=== PATIENT | male | born 1960 | race African-American/Black ===

== ENCOUNTER 2018-09-06 13:13 | Inpatient (IN) ==
[2018-09-06] MEDS ORDERED: SODIUM CHLORIDE 0.9% 1,000 ML IV PRN (14:23)
[2018-09-06 14:52] LABS: Eosinophils % 0.6 % (0.00-10.9); Immature Granulocytes % 0.2 %; Immature Granulocytes Absolute 0.01 #; Lymphocytes # 0.6 10*3/uL (1.4-4.0); Lymphocytes % 12.8 % (21.2-54.2); Mean Corpuscular HGB Conc 31.7 GM/DL (32-36); Mean Corpuscular Volume 93.9 FL (87-102); Monocytes % 5.4 % (1.7-12.7); Platelet Count 133 T/CUMM (130-400); Red Blood Count 1.31 MC/CUMM (3.8-5.5); Red Cell Distribution Width 13.5 % (9.3-17.3)
[2018-09-06] MEDS ORDERED: ACETAMINOPHEN 325 MG TABLET PO PRN (15:06)
[2018-09-06] MEDS ORDERED: GLUCAGON 1 MG VIAL IM PRN (15:06)
[2018-09-06] MEDS ORDERED: DEXTROSE 50% 25 GM/50 ML VIAL IV PRN (15:06)
[2018-09-06] MEDS ORDERED: DOCUSATE SODIUM 100 MG CAPSULE PO PRN (15:06)
[2018-09-06 15:15] LABS: Hematocrit 12.3 VOL% (42.0-52.0); Hemoglobin 3.9 GM/DL (14.0-18.0)
[2018-09-06 15:51] LABS: % Iron Saturation 32.4 % (18-50)
[2018-09-06 16:00] LABS: Folate 11.2 NG/ML (5.4-24.0)
[2018-09-06] MEDS ORDERED: MAGNESIUM SULF RIDER 2 GM in PREMIX 1 EACH IV ONE (16:27)
[2018-09-06 18:25] LABS: Calcium 7.6 MG/DL (8.5-10.1); Osmolality,Calculated 301.1 MOS/KG (273-304)
[2018-09-06] MEDS: INSULIN LISPRO 100 UNIT/ML SUBCUT SCH ×2 (18:25→20:53)
[2018-09-06] MEDS: SODIUM BICARBONATE 650 MG TABLET PO SCH (20:53)
[2018-09-06] MEDS: ATORVASTATIN 40 MG TABLET PO SCH (20:53)
[2018-09-07 07:27] LABS: Basophils % 0.4 % (0.0-0.8); Eosinophils # 0.1 10*3/uL (0.0-0.87); Eosinophils % 1.8 % (0.00-10.9); Hematocrit 24.6 VOL% (42.0-52.0); Immature Granulocytes % 0.4 %; Immature Granulocytes Absolute 0.03 #; Lymphocytes # 1.1 10*3/uL (1.4-4.0); Lymphocytes % 16.2 % (21.2-54.2); Mean Corpuscular HGB Conc 32.9 GM/DL (32-36); Mean Corpuscular Volume 91.4 FL (87-102); Mean Platelet Volume 9.4 FL (9.6-12.0); Monocytes % 6.3 % (1.7-12.7); Neutrophils % 74.9 % (38.7-73.9); Platelet Count 124 T/CUMM (130-400); Red Cell Distribution Width 13.4 % (9.3-17.3)
[2018-09-07 07:30] LABS: Red Blood Count 2.69 MC/CUMM (3.8-5.5); White Blood Count 6.8 T/CUMM (4-12)
[2018-09-07 07:31] LABS: Hemoglobin 8.1 GM/DL (14.0-18.0)
[2018-09-07 07:59] LABS: Alanine Aminotransferase 23 U/L (16-61); Albumin 2.8 G/DL (3.4-5.0); Alkaline Phosphatase 53 U/L (45-117); Aspartate Amino Transferase 16 U/L (0-37); Bilirubin,Total < 0.39 MG/DL (0.2-1.0); Blood Urea Nitrogen 59 MG/DL (7-18); Calcium 7.9 MG/DL (8.5-10.1); Glucose 87 MG/DL (74-106); Osmolality,Calculated 294.4 MOS/KG (273-304); Total Protein 6.1 G/DL (6.4-8.3)
[2018-09-07] MEDS: SODIUM BICARBONATE 650 MG TABLET PO SCH ×3 (08:44→21:05)
[2018-09-07] MEDS: PANTOPRAZOLE 40 MG TABLET PO SCH (08:44)
[2018-09-07] MEDS: INSULIN LISPRO 100 UNIT/ML SUBCUT SCH ×4 (08:44→21:06)
[2018-09-07] MEDS ORDERED: DIAZEPAM 5 MG TABLET PO ONE (10:46)
[2018-09-07 12:31] LABS: Hematocrit 26.2 VOL% (42.0-52.0); Hemoglobin 8.8 GM/DL (14.0-18.0)
[2018-09-07 15:40] LABS: Hematocrit 25.9 VOL% (42.0-52.0); Hemoglobin 8.7 GM/DL (14.0-18.0)
[2018-09-07 20:22] LABS: Hematocrit 26.3 VOL% (42.0-52.0); Hemoglobin 8.6 GM/DL (14.0-18.0)
[2018-09-07] MEDS: ATORVASTATIN 40 MG TABLET PO SCH (21:05)
[2018-09-07 23:31] LABS: Hematocrit 24.6 VOL% (42.0-52.0)
[2018-09-08 04:45] LABS: Basophils % 0.5 % (0.0-0.8); Eosinophils # 0.2 10*3/uL (0.0-0.87); Eosinophils % 2.7 % (0.00-10.9); Hematocrit 24.2 VOL% (42.0-52.0); Hemoglobin 8.2 GM/DL (14.0-18.0); Immature Granulocytes % 0.3 %; Immature Granulocytes Absolute 0.02 #; Lymphocytes # 1.3 10*3/uL (1.4-4.0); Lymphocytes % 17.3 % (21.2-54.2); Mean Corpuscular HGB Conc 33.9 GM/DL (32-36); Mean Corpuscular Volume 89.6 FL (87-102); Mean Platelet Volume 9.4 FL (9.6-12.0); Monocytes % 6.4 % (1.7-12.7); Neutrophils % 72.8 % (38.7-73.9); Platelet Count 132 T/CUMM (130-400); Red Cell Distribution Width 13.7 % (9.3-17.3); White Blood Count 7.4 T/CUMM (4-12)
[2018-09-08 05:17] LABS: Alanine Aminotransferase 21 U/L (16-61); Albumin 2.8 G/DL (3.4-5.0); Alkaline Phosphatase 54 U/L (45-117); Aspartate Amino Transferase 14 U/L (0-37); Bilirubin,Total < 0.39 MG/DL (0.2-1.0); Blood Urea Nitrogen 59 MG/DL (7-18); Calcium 7.7 MG/DL (8.5-10.1); Glucose 116 MG/DL (74-106); Osmolality,Calculated 298.3 MOS/KG (273-304)
[2018-09-08] MEDS: INSULIN LISPRO 100 UNIT/ML SUBCUT SCH ×4 (07:59→21:34)
[2018-09-08] MEDS: PANTOPRAZOLE 40 MG TABLET PO SCH (08:23)
[2018-09-08] MEDS: SODIUM BICARBONATE 650 MG TABLET PO SCH ×3 (08:23→21:30)
[2018-09-08] MEDS: amLODIPine 5 MG TABLET PO SCH (11:22)
[2018-09-08] MEDS: SODIUM CHLORIDE 0.9% 1,000 ML IV SCH (11:22)
[2018-09-08] MEDS: ATORVASTATIN 40 MG TABLET PO SCH (21:30)
[2018-09-09] MEDS: SODIUM CHLORIDE 0.9% 1,000 ML IV SCH ×2 (01:05→13:58)
[2018-09-09 05:39] LABS: Basophils % 0.5 % (0.0-0.8); Eosinophils # 0.2 10*3/uL (0.0-0.87); Eosinophils % 2.4 % (0.00-10.9); Hemoglobin 8.4 GM/DL (14.0-18.0); Immature Granulocytes % 0.3 %; Immature Granulocytes Absolute 0.02 #; Lymphocytes # 1.2 10*3/uL (1.4-4.0); Lymphocytes % 15.3 % (21.2-54.2); Mean Corpuscular HGB Conc 33.6 GM/DL (32-36); Mean Corpuscular Volume 89.9 FL (87-102); Mean Platelet Volume 9.7 FL (9.6-12.0); Monocytes % 7.1 % (1.7-12.7); Neutrophils % 74.4 % (38.7-73.9); Platelet Count 133 T/CUMM (130-400); Red Blood Count 2.78 MC/CUMM (3.8-5.5); Red Cell Distribution Width 13.4 % (9.3-17.3); White Blood Count 7.6 T/CUMM (4-12)
[2018-09-09 05:53] LABS: Albumin 2.7 G/DL (3.4-5.0); Bilirubin,Total 0.7 MG/DL (0.2-1.0); Calcium 8.1 MG/DL (8.5-10.1); Osmolality,Calculated 294.3 MOS/KG (273-304); Total Protein 5.6 G/DL (6.4-8.3)
[2018-09-09] MEDS: INSULIN LISPRO 100 UNIT/ML SUBCUT SCH ×4 (07:51→21:12)
[2018-09-09] MEDS: PANTOPRAZOLE 40 MG TABLET PO SCH (09:18)
[2018-09-09] MEDS: SODIUM BICARBONATE 650 MG TABLET PO SCH ×3 (09:18→21:12)
[2018-09-09] MEDS: amLODIPine 5 MG TABLET PO SCH (09:18)
[2018-09-09] MEDS: ATORVASTATIN 40 MG TABLET PO SCH (21:12)
[2018-09-10] MEDS: INSULIN LISPRO 100 UNIT/ML SUBCUT SCH ×4 (07:41→21:52)
[2018-09-10 08:05] LABS: Basophils % 0.5 % (0.0-0.8); Eosinophils # 0.2 10*3/uL (0.0-0.87); Eosinophils % 2.8 % (0.00-10.9); Hematocrit 27.6 VOL% (42.0-52.0); Immature Granulocytes % 0.3 %; Immature Granulocytes Absolute 0.02 #; Lymphocytes % 15.9 % (21.2-54.2); Mean Corpuscular HGB Conc 32.6 GM/DL (32-36); Mean Corpuscular Volume 92.3 FL (87-102); Mean Platelet Volume 9.4 FL (9.6-12.0); Monocytes % 6.7 % (1.7-12.7); Neutrophils % 73.8 % (38.7-73.9); Platelet Count 132 T/CUMM (130-400); Red Blood Count 2.99 MC/CUMM (3.8-5.5); Red Cell Distribution Width 13.5 % (9.3-17.3); White Blood Count 6.1 T/CUMM (4-12)
[2018-09-10 08:22] LABS: Alanine Aminotransferase 19 U/L (16-61); Albumin 2.9 G/DL (3.4-5.0); Alkaline Phosphatase 59 U/L (45-117); Aspartate Amino Transferase 16 U/L (0-37); Bilirubin,Total < 0.39 MG/DL (0.2-1.0); Blood Urea Nitrogen 43 MG/DL (7-18); Calcium 7.8 MG/DL (8.5-10.1); Glucose 113 MG/DL (74-106); Osmolality,Calculated 290.4 MOS/KG (273-304); Total Protein 6.3 G/DL (6.4-8.3)
[2018-09-10] MEDS: PANTOPRAZOLE 40 MG TABLET PO SCH (08:36)
[2018-09-10] MEDS: amLODIPine 5 MG TABLET PO SCH (08:36)
[2018-09-10] MEDS: SODIUM BICARBONATE 650 MG TABLET PO SCH ×3 (08:36→21:50)
[2018-09-10] MEDS: ATORVASTATIN 40 MG TABLET PO SCH (21:50)
[2018-09-11] MEDS: PANTOPRAZOLE 40 MG TABLET PO SCH (08:07)
[2018-09-11] MEDS: SODIUM BICARBONATE 650 MG TABLET PO SCH ×3 (08:08→21:04)
[2018-09-11] MEDS: amLODIPine 10 MG TABLET PO SCH (08:11)
[2018-09-11] MEDS: INSULIN LISPRO 100 UNIT/ML SUBCUT SCH ×4 (08:13→21:06)
[2018-09-11] MEDS ORDERED: ceFAZolin 2,000 MG in PREMIX 1 EACH IV ONE (08:30)
[2018-09-11 13:03] LABS: Basophils % 0.6 % (0.0-0.8); Eosinophils # 0.2 10*3/uL (0.0-0.87); Eosinophils % 2.4 % (0.00-10.9); Hematocrit 28.5 VOL% (42.0-52.0); Hemoglobin 9.5 GM/DL (14.0-18.0); Immature Granulocytes % 0.3 %; Immature Granulocytes Absolute 0.02 #; Lymphocytes % 14.6 % (21.2-54.2); Mean Corpuscular HGB Conc 33.3 GM/DL (32-36); Mean Corpuscular Volume 90.5 FL (87-102); Mean Platelet Volume 9.8 FL (9.6-12.0); Monocytes % 6.8 % (1.7-12.7); Neutrophils % 75.3 % (38.7-73.9); Platelet Count 139 T/CUMM (130-400); Red Blood Count 3.15 MC/CUMM (3.8-5.5); Red Cell Distribution Width 13.6 % (9.3-17.3); White Blood Count 6.6 T/CUMM (4-12)
[2018-09-11 13:28] LABS: Albumin 3.1 G/DL (3.4-5.0); Calcium 8.5 MG/DL (8.5-10.1)
[2018-09-11] MEDS ORDERED: LIDOCAINE 1%/EPI INJ 20 ML VIAL ONE (13:47)
[2018-09-11] MEDS ORDERED: TISSUE ADHESIVE 1 EACH APPLICATOR TOP ONE (13:47)
[2018-09-11] MEDS ORDERED: SEVOFLURANE 1 UNIT/15 MINUTE INH ONE (15:58)
[2018-09-11] MEDS ORDERED: ePHEDrine 50 MG/ML AMP ONE (15:58)
[2018-09-11] MEDS ORDERED: fentaNYL 100 MCG/2 ML VIAL ONE (15:58)
[2018-09-11] MEDS ORDERED: MIDAZOLAM 2 MG/2 ML VIAL ONE (15:58)
[2018-09-11] MEDS ORDERED: DESFLURANE 1 UNIT/15 MINUTE INH ONE (15:58)
[2018-09-11] MEDS ORDERED: PROPOFOL 200 MG/20 ML VIAL IV ONE (15:58)
[2018-09-11] MEDS ORDERED: PHENYLEPHRINE 1 MG/10 ML SYRINGE IV ONE (15:59)
[2018-09-11] MEDS ORDERED: GLYCOPYRROLATE 0.4 MG/2 ML VIAL ONE (15:59)
[2018-09-11] MEDS ORDERED: NEOSTIGMINE 10 MG/10 ML VIAL ONE (15:59)
[2018-09-11] MEDS ORDERED: ROCURONIUM 100 MG/10 ML VIAL IV ONE (15:59)
[2018-09-11] MEDS ORDERED: LACTATED RINGERS 1,000 ML IV ONE (15:59)
[2018-09-11] MEDS ORDERED: MORPHINE 4 MG/1 ML VIAL IV PRN (16:44)
[2018-09-11] MEDS: ATORVASTATIN 40 MG TABLET PO SCH (21:04)
[2018-09-11] MEDS: ONDANSETRON 4 MG/2 ML VIAL IV PRN (21:18)
[2018-09-12 04:55] LABS: Basophils % 0.2 % (0.0-0.8); Eosinophils % 0.3 % (0.00-10.9); Hematocrit 27.3 VOL% (42.0-52.0); Immature Granulocytes % 0.3 %; Immature Granulocytes Absolute 0.03 #; Lymphocytes # 0.7 10*3/uL (1.4-4.0); Lymphocytes % 8.2 % (21.2-54.2); Mean Corpuscular Volume 91.3 FL (87-102); Mean Platelet Volume 10.3 FL (9.6-12.0); Monocytes % 5.7 % (1.7-12.7); Neutrophils % 85.3 % (38.7-73.9); Platelet Count 116 T/CUMM (130-400); Red Blood Count 2.99 MC/CUMM (3.8-5.5); Red Cell Distribution Width 13.6 % (9.3-17.3); White Blood Count 8.6 T/CUMM (4-12)
[2018-09-12 05:13] LABS: Albumin 2.8 G/DL (3.4-5.0); Calcium 8.1 MG/DL (8.5-10.1); Osmolality,Calculated 289.7 MOS/KG (273-304)
[2018-09-12] MEDS: INSULIN LISPRO 100 UNIT/ML SUBCUT SCH ×4 (08:51→22:57)
[2018-09-12] MEDS: SODIUM BICARBONATE 650 MG TABLET PO SCH ×3 (08:53→20:12)
[2018-09-12] MEDS: amLODIPine 10 MG TABLET PO SCH (08:53)
[2018-09-12] MEDS: PANTOPRAZOLE 40 MG TABLET PO SCH (08:54)
[2018-09-12] MEDS: ONDANSETRON 4 MG/2 ML VIAL IV PRN (16:55)
[2018-09-12] MEDS: ATORVASTATIN 40 MG TABLET PO SCH (20:13)
[2018-09-13 05:41] LABS: Basophils % 0.4 % (0.0-0.8); Eosinophils # 0.1 10*3/uL (0.0-0.87); Eosinophils % 0.8 % (0.00-10.9); Hematocrit 32.9 VOL% (42.0-52.0); Hemoglobin 10.7 GM/DL (14.0-18.0); Immature Granulocytes % 0.8 %; Immature Granulocytes Absolute 0.08 #; Lymphocytes # 1.3 10*3/uL (1.4-4.0); Lymphocytes % 12.5 % (21.2-54.2); Mean Corpuscular HGB Conc 32.5 GM/DL (32-36); Mean Corpuscular Volume 92.2 FL (87-102); Mean Platelet Volume 9.8 FL (9.6-12.0); Monocytes % 5.3 % (1.7-12.7); Neutrophils % 80.2 % (38.7-73.9); Platelet Count 142 T/CUMM (130-400); Red Blood Count 3.57 MC/CUMM (3.8-5.5); Red Cell Distribution Width 13.5 % (9.3-17.3); White Blood Count 10.7 T/CUMM (4-12)
[2018-09-13 05:48] LABS: Albumin 3.6 G/DL (3.4-5.0); Calcium 8.5 MG/DL (8.5-10.1); Osmolality,Calculated 281.1 MOS/KG (273-304)
[2018-09-13] MEDS: INSULIN LISPRO 100 UNIT/ML SUBCUT SCH ×4 (09:31→21:43)
[2018-09-13] MEDS ORDERED: MIDAZOLAM 2 MG/2 ML VIAL IV ONE (11:27)
[2018-09-13] MEDS ORDERED: fentaNYL 100 MCG/2 ML VIAL IV ONE (11:27)
[2018-09-13] MEDS ORDERED: DIAZEPAM 5 MG TABLET PO ONE (13:00)
[2018-09-13] MEDS ORDERED: MIDAZOLAM 2 MG/2 ML VIAL ONE (14:11)
[2018-09-13] MEDS ORDERED: fentaNYL 100 MCG/2 ML VIAL ONE (14:11)
[2018-09-13] MEDS: PANTOPRAZOLE 40 MG TABLET PO SCH (16:37)
[2018-09-13] MEDS: SODIUM BICARBONATE 650 MG TABLET PO SCH ×3 (16:37→21:41)
[2018-09-13] MEDS: amLODIPine 10 MG TABLET PO SCH (16:37)
[2018-09-13] MEDS: ATORVASTATIN 40 MG TABLET PO SCH (21:42)
[2018-09-14 05:33] LABS: Basophils % 0.2 % (0.0-0.8); Eosinophils # 0.1 10*3/uL (0.0-0.87); Eosinophils % 1.2 % (0.00-10.9); Hematocrit 27.2 VOL% (42.0-52.0); Hemoglobin 8.8 GM/DL (14.0-18.0); Immature Granulocytes % 0.4 %; Immature Granulocytes Absolute 0.03 #; Lymphocytes # 1.2 10*3/uL (1.4-4.0); Lymphocytes % 14.1 % (21.2-54.2); Mean Corpuscular HGB Conc 32.4 GM/DL (32-36); Mean Corpuscular Volume 91.6 FL (87-102); Mean Platelet Volume 9.9 FL (9.6-12.0); Monocytes % 5.8 % (1.7-12.7); Neutrophils % 78.3 % (38.7-73.9); Platelet Count 107 T/CUMM (130-400); Red Blood Count 2.97 MC/CUMM (3.8-5.5); Red Cell Distribution Width 13.5 % (9.3-17.3); White Blood Count 8.2 T/CUMM (4-12)
[2018-09-14 05:49] LABS: Albumin 2.7 G/DL (3.4-5.0); Calcium 8.2 MG/DL (8.5-10.1)
[2018-09-14] MEDS ORDERED: MAGNESIUM HYDROXIDE SUSP 30 ML UDCUP PO PRN (07:44)
[2018-09-14] MEDS: TAMSULOSIN 0.4 MG CAPSULE PO SCH (08:37)
[2018-09-14] MEDS: SODIUM BICARBONATE 650 MG TABLET PO SCH ×3 (08:37→21:26)
[2018-09-14] MEDS: PANTOPRAZOLE 40 MG TABLET PO SCH (08:37)
[2018-09-14] MEDS: amLODIPine 10 MG TABLET PO SCH (08:37)
[2018-09-14] MEDS: INSULIN LISPRO 100 UNIT/ML SUBCUT SCH ×4 (10:21→21:34)
[2018-09-14] MEDS ORDERED: SODIUM POLYSTYRENE SULFATE 15 GM/60 ML BOTTLE PO ONE (13:30)
[2018-09-14] MEDS: ATORVASTATIN 40 MG TABLET PO SCH (21:26)
[2018-09-15 05:57] LABS: Albumin 2.7 G/DL (3.4-5.0); Calcium 8.2 MG/DL (8.5-10.1); Osmolality,Calculated 281.2 MOS/KG (273-304)
[2018-09-15] MEDS: INSULIN LISPRO 100 UNIT/ML SUBCUT SCH ×2 (07:29→12:08)
[2018-09-15] MEDS: SODIUM BICARBONATE 650 MG TABLET PO SCH (09:38)
[2018-09-15] MEDS: PANTOPRAZOLE 40 MG TABLET PO SCH (09:38)
[2018-09-15] MEDS: TAMSULOSIN 0.4 MG CAPSULE PO SCH (09:38)
[2018-09-15] MEDS: amLODIPine 10 MG TABLET PO SCH (09:38)
[2018-09-15 12:13] VITALS: BP 135/87
== END 2018-09-15 13:50 | disposition home or self-care, planned readmission (81) | DRG 988 ==
LOC: N.ED 13:13 → SUATTDRO 15:07 → N.2E 15:22 → N.EDINP 17:25 → N.2E 17:30
PROVIDERS: ADMIT Emergency Medicine; ATTEND Internal Medicine

== ENCOUNTER 2018-10-10 11:50 | Observation (INO) ==
[2018-10-10] MEDS ORDERED: ONDANSETRON 4 MG/2 ML VIAL IV PRN (17:29)
[2018-10-10] MEDS ORDERED: GLUCAGON 1 MG VIAL IM PRN ×2 (17:29)
[2018-10-10] MEDS ORDERED: SODIUM CHLORIDE 0.9% 1,000 ML IV PRN (17:29)
[2018-10-10] MEDS ORDERED: DEXTROSE 50% 25 GM/50 ML VIAL IV PRN ×2 (17:29)
[2018-10-10] MEDS ORDERED: ACETAMINOPHEN 325 MG TABLET PO PRN (17:29)
[2018-10-10 18:29] LABS: Basophils % 0.3 % (0.0-0.8); Eosinophils # 0.1 10*3/uL (0.0-0.87); Eosinophils % 1.6 % (0.00-10.9); Immature Granulocytes % 0.4 %; Immature Granulocytes Absolute 0.03 #; Lymphocytes # 1.4 10*3/uL (1.4-4.0); Lymphocytes % 18.4 % (21.2-54.2); Mean Corpuscular HGB Conc 30.5 GM/DL (32-36); Mean Corpuscular Volume 94.6 FL (87-102); Mean Platelet Volume 9.6 FL (9.6-12.0); Monocytes % 5.1 % (1.7-12.7); Neutrophils % 74.2 % (38.7-73.9); Platelet Count 179 T/CUMM (130-400); Red Blood Count 2.22 MC/CUMM (3.8-5.5); Red Cell Distribution Width 14.3 % (9.3-17.3); White Blood Count 7.5 T/CUMM (4-12)
[2018-10-10 18:38] LABS: Hemoglobin 6.4 GM/DL (14.0-18.0)
[2018-10-10 18:50] LABS: Alanine Aminotransferase 20 U/L (16-61); Albumin 3.2 G/DL (3.4-5.0); Alkaline Phosphatase 79 U/L (45-117); Aspartate Amino Transferase 15 U/L (0-37); Bilirubin,Total < 0.39 MG/DL (0.2-1.0); Blood Urea Nitrogen 46 MG/DL (7-18); Calcium 8.8 MG/DL (8.5-10.1); Glucose 107 MG/DL (74-106); Osmolality,Calculated 290.4 MOS/KG (273-304); Total Protein 7.9 G/DL (6.4-8.3)
[2018-10-10 19:00] LABS: Vitamin B12 481 PG/ML (211-911)
[2018-10-10 19:47] LABS: Sedimentation Rate-Westergren 100 MM/HR (0-20)
[2018-10-10] MEDS: INSULIN REGULAR 100 UNIT/ML SUBCUT SCH (21:31)
[2018-10-10] MEDS: ATORVASTATIN 40 MG TABLET PO SCH (21:31)
[2018-10-10] MEDS: TAMSULOSIN 0.4 MG CAPSULE PO SCH (23:55)
[2018-10-11 05:36] LABS: Hematocrit 23.7 VOL% (42.0-52.0); Hemoglobin 7.6 GM/DL (14.0-18.0)
[2018-10-11 06:17] LABS: Basophils % 0.6 % (0.0-0.8); Eosinophils # 0.1 10*3/uL (0.0-0.87); Hematocrit 23.8 VOL% (42.0-52.0); Hemoglobin 7.7 GM/DL (14.0-18.0); Immature Granulocytes % 0.4 %; Immature Granulocytes Absolute 0.03 #; Lymphocytes # 1.1 10*3/uL (1.4-4.0); Lymphocytes % 14.9 % (21.2-54.2); Mean Corpuscular HGB Conc 32.4 GM/DL (32-36); Mean Corpuscular Volume 89.8 FL (87-102); Mean Platelet Volume 9.4 FL (9.6-12.0); Monocytes % 8.4 % (1.7-12.7); Neutrophils % 73.7 % (38.7-73.9); Platelet Count 150 T/CUMM (130-400); Red Blood Count 2.65 MC/CUMM (3.8-5.5); Red Cell Distribution Width 14.7 % (9.3-17.3); White Blood Count 7.1 T/CUMM (4-12)
[2018-10-11] MEDS ORDERED: SODIUM CHLORIDE 0.9% 1,000 ML IV PRN ×2 (06:30→08:09)
[2018-10-11 06:56] LABS: Albumin 2.9 G/DL (3.4-5.0); Bilirubin,Total 0.5 MG/DL (0.2-1.0); Calcium 8.2 MG/DL (8.5-10.1); Osmolality,Calculated 292.1 MOS/KG (273-304)
[2018-10-11] MEDS: INSULIN REGULAR 100 UNIT/ML SUBCUT SCH ×4 (08:36→21:12)
[2018-10-11] MEDS ORDERED: TAMSULOSIN 0.4 MG CAPSULE PO SCH (09:00)
[2018-10-11] MEDS: FINASTERIDE 5 MG TABLET PO SCH (09:03)
[2018-10-11] MEDS: PANTOPRAZOLE 40 MG TABLET PO SCH (09:03)
[2018-10-11] MEDS: amLODIPine 10 MG TABLET PO SCH (09:03)
[2018-10-11 10:37] LABS: Hemoglobin A1 (Alkaline) 96.9 % (96.5-98.5); Hemoglobin A2 (Alkaline) 3.1 % (1.5-3.5)
[2018-10-11 14:11] LABS: Hemoglobin 10.1 GM/DL (14.0-18.0)
[2018-10-11] MEDS: ATORVASTATIN 40 MG TABLET PO SCH (21:35)
[2018-10-11] MEDS: FERROUS SULFATE 325 MG TABLET PO SCH (21:35)
[2018-10-11] MEDS: TAMSULOSIN 0.4 MG CAPSULE PO SCH (21:35)
[2018-10-11 22:19] LABS: Apearance,Urine Slightly Hazy (Clear); Bilirubin,Urine Negative (Negative); Blood, Urine Small mg/dL (Negative); Glucose,Urine (UA) Negative (Negative); Ketones,Urine Negative (Negative); Nitrite,Urine Negative (Negative); Protein,Urine Negative; RBC,Urine 11 /HPF (0-4); Squamous Epithelial Cell,Urine Occasional /HPF (0-10); Urine Color Straw (Yellow); Urine Specific Gravity 1.006 (1.001-1.035); Urine Urobilinogen < 2.0 EU/DL (0.2-1.0); WBC,Urine 417 /HPF (0-6)
[2018-10-12 05:46] LABS: Basophils % 0.3 % (0.0-0.8); Eosinophils # 0.1 10*3/uL (0.0-0.87); Eosinophils % 1.4 % (0.00-10.9); Hematocrit 28.8 VOL% (42.0-52.0); Hemoglobin 9.5 GM/DL (14.0-18.0); Immature Granulocytes % 0.3 %; Immature Granulocytes Absolute 0.02 #; Lymphocytes # 1.2 10*3/uL (1.4-4.0); Lymphocytes % 15.4 % (21.2-54.2); Mean Corpuscular Volume 88.1 FL (87-102); Mean Platelet Volume 9.7 FL (9.6-12.0); Monocytes % 7.5 % (1.7-12.7); Neutrophils % 75.1 % (38.7-73.9); Platelet Count 151 T/CUMM (130-400); Red Blood Count 3.27 MC/CUMM (3.8-5.5); Red Cell Distribution Width 14.7 % (9.3-17.3); White Blood Count 7.7 T/CUMM (4-12)
[2018-10-12] MEDS: INSULIN REGULAR 100 UNIT/ML SUBCUT SCH ×4 (07:46→20:20)
[2018-10-12] MEDS: PANTOPRAZOLE 40 MG TABLET PO SCH (08:28)
[2018-10-12] MEDS: amLODIPine 10 MG TABLET PO SCH (08:28)
[2018-10-12] MEDS: FINASTERIDE 5 MG TABLET PO SCH (08:29)
[2018-10-12] MEDS: FERROUS SULFATE 325 MG TABLET PO SCH ×2 (08:29→20:18)
[2018-10-12] MEDS: ATENOLOL 25 MG TABLET PO SCH (13:04)
[2018-10-12] MEDS: TAMSULOSIN 0.4 MG CAPSULE PO SCH (20:18)
[2018-10-12] MEDS: ATORVASTATIN 40 MG TABLET PO SCH (20:18)
[2018-10-13 05:33] LABS: Hematocrit 28.6 VOL% (42.0-52.0); Hemoglobin 9.3 GM/DL (14.0-18.0)
[2018-10-13 06:02] LABS: Calcium 8.3 MG/DL (8.5-10.1); Osmolality,Calculated 296.1 MOS/KG (273-304)
[2018-10-13 06:05] LABS: Risk Ratio 1.55; VLDL CHOLESTEROL 7.8 MG/DL
[2018-10-13] MEDS ORDERED: LACTATED RINGERS 1,000 ML IV SCH (08:00)
[2018-10-13] MEDS: INSULIN REGULAR 100 UNIT/ML SUBCUT SCH ×2 (08:02→12:08)
[2018-10-13] MEDS ORDERED: PROPOFOL 200 MG/20 ML VIAL IV ONE (10:00)
[2018-10-13] MEDS ORDERED: LIDOCAINE 2% 5 ML VIAL ONE (10:00)
[2018-10-13] MEDS ORDERED: ATENOLOL 25 MG TABLET PO SCH (10:20)
[2018-10-13] MEDS ORDERED: DEXTROSE 50% 25 GM/50 ML VIAL IV PRN (10:49)
[2018-10-13] MEDS ORDERED: GLUCAGON 1 MG VIAL IM PRN (10:49)
[2018-10-13] MEDS: FERROUS SULFATE 325 MG TABLET PO SCH (11:04)
[2018-10-13] MEDS: PANTOPRAZOLE 40 MG TABLET PO SCH (11:04)
[2018-10-13] MEDS: amLODIPine 10 MG TABLET PO SCH (11:04)
[2018-10-13] MEDS: FINASTERIDE 5 MG TABLET PO SCH (11:08)
[2018-10-13] MEDS: ATENOLOL 25 MG TABLET PO SCH (11:42)
[2018-10-13 11:49] VITALS: BP 142/85
[2018-10-13] MEDS ORDERED: IRON SUCROSE 200 MG in SODIUM CHLORIDE 0.9% 100 ML IV SCH (11:55)
[2018-10-16] MEDS ORDERED: EPOETIN ALFA 10,000 UNIT/1 ML VIAL SUBCUT ONE (08:00)
== END 2018-10-13 16:24 | disposition home or self-care (01) ==
LOC: N.ADMINP → N.5E → SUATTDRO 14:32
PROVIDERS: ADMIT Internal Medicine